=== PATIENT | female | born 1995 | race Caucasian/White ===

== ENCOUNTER 2024-05-01 12:38 | Outpatient (CLI) | payer BC, SELFPAY | END 2024-05-01 12:39 | disposition home or self-care (01) | PROVIDERS: Visit Provider Obstetrics & Gynecology | DX: O20.9 Hemorrhage in early pregnancy, unspecified (principal) | CPT/HCPCS: 84702; 86850; 86900; 86901 ==

== ENCOUNTER 2024-05-02 10:38 | Outpatient (CLI) | payer BC, SELFPAY | END 2024-05-02 10:39 | disposition home or self-care (01) | LOC: US 10:40 | PROVIDERS: Visit Provider Obstetrics & Gynecology | DX: O20.9 Hemorrhage in early pregnancy, unspecified (principal); Z3A.01 Less than 8 weeks gestation of pregnancy | CPT/HCPCS: 76817; 87491; 87591 ==

== ENCOUNTER 2024-05-07 13:31 | Outpatient (CLI) | payer BC, SELFPAY | END 2024-05-07 13:32 | disposition home or self-care (01) | LOC: US 13:32 | PROVIDERS: Visit Provider Registered Nurse | DX: Z34.91 Encounter for supervision of normal pregnancy, unspecified, first trimester (principal); Z3A.01 Less than 8 weeks gestation of pregnancy | CPT/HCPCS: 76817; 82565; 82570; 83021; 84156; 84443; 84450; 84460; 84520; 86592; 86703; 86704; 86706; 86762; 86787; 86803; 87086; 87340; 87624; 88142 ==

== ENCOUNTER 2024-05-16 13:43 | Outpatient (CLI) | payer BC, SELFPAY | END 2024-05-16 13:44 | disposition home or self-care (01) | LOC: US 13:43 | PROVIDERS: Visit Provider Registered Nurse | DX: E04.9 Nontoxic goiter, unspecified (principal) | CPT/HCPCS: 76536 ==

== ENCOUNTER 2024-05-19 11:23 | Outpatient (CLI) | payer BC, SELFPAY ==
--- NOTE | 2024-05-19 11:30 | CRLHL7_ITS ---
For Patients: As a result of the Century Cures Act, medical imaging exams and procedure reports are released immediately into your electronic medical record. You may view this report before your referring provider. If you have questions, please contact your health care provider. Indication: History of subchorionic hemorrhage Technique: Ultrasound Ob 1st trimester utilizing grayscale and color flow techniques Comparison: Ob ultrasound 131 25 and 05/07/2024 Findings: Single live intrauterine has a heart rate of 179 beats per minute and an average crown-rump length of 25 millimeters = average ultrasound age of 9 weeks 2 days with estimated date of delivery of July 06, 2024. Yolk sac measures 4 millimeters. Amniotic fluid is grossly unremarkable and limited by gestational age. Placenta was also not visualized secondary to gestational age. The cervix is long and closed. Uterus is grossly unremarkable. Right ovary measures 3.5 x 2.3 x 2.2 centimeters. Left ovary measures 2.8 x 1.6 x 1.4 centimeters. Minimally complex dominant left ovarian follicle is likely corpus luteal cyst and measures up to 2.3 centimeters. There is no free fluid. Impression: 1. No subchorionic hemorrhage. If there is continued concern, recommend Ob evaluation. 2. Single live intrauterine with average ultrasound age of 9 weeks 2 days. Dictated by Bert Ravi MD @ 05/19/2024 5:18:20 PM (Electronically Signed)
== END 2024-05-19 11:24 | disposition home or self-care (01) ==
PROVIDERS: Visit Provider Advanced Practice Midwife
DX: O20.9 Hemorrhage in early pregnancy, unspecified (principal); Z3A.09 9 weeks gestation of pregnancy
CPT/HCPCS: 76817; 82570; 84156

== ENCOUNTER 2024-06-27 05:56 | Day surgery (SDC) | payer BC, SELFPAY ==
[2024-06-27] VITALS (9 sets, daily range): BP systolic 117–136; BP diastolic 70–86; PULSE 83–113; RESP 14–18; TEMP 36.4–36.7; O2SAT 95–100; BMI 27.1; BMI 26.9
--- OUTSIDE RECORDS SUMMARY | 2024-06-27 05:57 | XMS_ITS | Clinical Summary ---
Author Organization [facility] Address [address] [place] [id number] Care Team Providers Care Online Tutor Name Role Phone Clinic, No Pcp Or Primary Care Provider Unavaila ble Allergies No known active allergies Medications No known medications Encounters Date Type Department Care Team Description 05/12/2024 1:56 PM AUTOMOTIVE PROFESSIONAL - 05/12/2024 3:53 PM AUTOMOTIVE PROFESSIONAL Emergency [facility] [address] [place] [address] Anne Marie Wen MD Threatened miscarriage (HC) (Primary Dx) Discharge Disposition: Home Self Care 05/12/2024 Travel from Last 3 Months Social History Tobacco Use Types Packs/Day Years Used Date Smoking Tobacco: Never Assessed Interpersonal Safety Answer Date Record ed Are you being hit, kicked, p ushed or yelled at (see row info)? No 05/12/2024 Interpersonal Safety Abuse 12 - 18 Not on file 05/12/2024 Interpersonal Safety Ambulatory Vulnerability No t on file 05/12/2024 Comments Yes Sex and Gender Information Value Date Recorded Sex Assigned at Not on file Legal Sex Female 1:17 PM AUTOMOTIVE PROFESSION[employer] Gender Identity Not on file Sexual Orientation Not on file Obstetrics History Para Term AB IAB SAB Ectopic Multiple Livin g Live Births 1 Date Outcome GA Total Labor Labor/2nd/3rd Weight Sex Type Anes PTL Humera A1 A5 Name Clin Current Last Filed Vital Signs Vital Sign Reading Time Taken Comments Blood Pressure 132/90 05/12/2024 1:27 PM AUTOMOTIVE PROFESSIONAL Pulse 109 05/12/2024 1:27 PM AUTOMOTIVE PROFESSIONAL Temperature 36.7 C (98.1 F) 05/12/2024 1:27 PM AUTOMOTIVE PROFESSIONAL Respiratory Rate 18 05/12/2024 1:27 PM AUTOMOTIVE PROFESSIONAL Oxygen Saturation 99% 05/12/2024 1:27 PM AUTOMOTIVE PROFESSIONAL Inhaled Oxygen Concentration - - Weight 70.5 kg (155 lb 6.4 oz) 05/12/2024 1:24 P M AUTOMOTIVE PROFESSIONAL Height 160 cm (5' 3) 05/12/2024 1:24 PM AUTOMOTIVE PROFESSIONAL Body Mass Index 27.53 05/12/2024 1:24 PM AUTOMOTIVE PROFESSIONAL Plan of Treatment Not on file Procedures Procedure Name Priority Date/Time Associated Diagnosis Comments RH(D) TYPE STAT 05/12/2024 3:00 PM AUTOMOTIVE PROFESSIONAL CBC WITH AUTO DIFFERENTIAL STAT 05/12/2024 3:00 PM AUTOMOTIVE PROFESSIONAL HCG BETA QUANT, STAT 05/12/2024 3:00 PM AUTOMOTIVE PROFESSIONAL CBC WITH AUTO DIFFERENTIAL STAT 05/12/2024 3:00 PM AUTOMOTIVE PROFESSIONAL URINALYSIS MICROSCOPIC STAT 05/12/2024 2:17 PM AUTOMOTIVE PROFESSIONAL UA W/ SEDIMENT EXAM REFLEXED PER CRITERIA STAT 05/12/2024 2:17 PM AUTOMOTIVE PROFESSIONAL from Last 3 Months Results * CBC WITH AUTO DIFFERENTIAL (05/12/2024 3:00 PM AUTOMOTIVE PROFESSIONAL) WHITE BLOOD COUNT 8.4 4.5 - 11.0 thou/cu mm 05/12/2024 3:10 PM [facility] RED BLOOD COUNT 4.42 4.00 - 5.20 mil/cu mm 05/12/2024 3:10 PM [facility] HEMOGLOBIN 13.1 12.0 - 16.0 g/dL 05/12/2024 3:10 PM [facility] HEMATOCRIT 38.9 33.0 - 51.0 % 05/12/2024 3:10 PM [facility] MCV 88 80 - 100 fL 05/12/2024 3:10 PM [facility] MCH 29.6 26.0 - 34.0 pg 05/12/2024 3:10 PM [facility] MCHC 33.7 32.0 - 36.0 g/dL 05/12/2024 3:10 PM [facility] RDW 12.4 11.5 - 15.5 % 05/12/2024 3:10 PM [facility] PLATELET COUNT 214 140 - 440 thou/cu mm 05/12/2024 3:10 PM [facility] MPV 9.8 6.5 - 11.0 fL 05/12/2024 3:10 PM [facility] % NEUT 76.1 % 05/12/2024 3:10 PM [facility] % LYMPH 16.9 % 05/12/2024 3:10 PM [facility] % MONO 5.8 % 05/12/2024 3:10 PM [facility] % EOS 1.0 % 05/12/2024 3:10 PM [facility] % BASO 0.2 % 05/12/2024 3:10 PM [facility] ABSOLUTE NEUTROPHILS 6.4 1.7 - 7.0 thou/cu mm 05/12/2024 3:10 PM [facility] ABSOLUTE LYMPHOCYTES 1.4 0.9 - 2.9 thou/cu mm 05/12/2024 3:10 PM [facility] ABSOLUTE MONOCYTES 0.5 <0.9 thou/cu mm 05/12/2024 3:10 PM [facility] ABSOLUTE EOSINOPHILS 0.1 <0.5 thou/cu mm 05/12/2024 3:10 PM [facility] ABSOLUTE BASOPHILS 0.0 <0.3 thou/cu mm 05/12/2024 3:10 PM [facility] Blood BLOOD SPECIMEN / Unknown Venipuncture / Unknown 05/12/2024 3:00 PM AUTOMOTIVE PROFESSIONAL 05/12/2024 3:05 PM [facility] us Anne Marie Wen MD HEMATOLOGY Final Result [facility] [address] [phone] * RH(D) TYPE (05/12/2024 3:00 PM AUTOMOTIVE PROFESSIONAL) RH(D) TYPE Positive 05/12/2024 3:41 PM AUTOMOTIVE PROFESSIONAL [facility] BLOOD BANK Blood BLOOD SPECIMEN / Unknown Venipuncture / Unknown 05/12/2024 3:00 PM AUTOMOTIVE PROFESSIONAL 05/12/2024 3:05 PM AUTOMOTIVE PROFESSIONAL us Anne Marie Wen MD BLOOD BANK Final Result [facility] [address] [phone] * HCG BETA QUANT, (05/12/2024 3:00 PM AUTOMOTIVE PROFESSIONAL) HCG BETA QUANT,PREGNANC Y 123,972 mIU/mL 05/12/2024 3:59 PM AUTOMOTIVE PROFESSIONAL [facility] Blood BLOOD SPECIMEN / Unknown Venipuncture / Unknown 05/12/2024 3:00 PM AUTOMOTIVE PROFESSIONAL 05/12/2024 3:05 PM AUTOMOTIVE PROFESSIONAL Narrative [facility] - 05/12/2024 3:59 PM AUTOMOTIVE PROFESSIONAL Expected Value for Healthy Non- premenopausal women <5.3mIU/mL FOR GESTATIONAL ASSESSMENT-See Range Table Below Weeks of gestation hCG mIU/mL 3 weeks gestation (5.8 - 71.2) 4 weeks gestation (9.5 - 750) 5 weeks gestation (217 - 7138) 6 weeks gestation (158 - 31,795) 7 weeks gestation (3,697 - 163,563) 8 weeks gestation (32,065 - 149,571) 9 weeks gestation (63,803 - 151,410) 10 weeks gestation (46,509 - 186,977) 12 weeks gestation (27,832 - 210,612) 14 weeks gestation (13,950 - 62,530) 15 weeks gestation (12,039 - 70,971) 16 weeks gestation (9,040 - 56,451) 17 weeks gestation (8,175 - 55,868) 18 weeks gestation (8,099 - 58,176) Biotin supplements may cause clinically significant interference for this test assay. If interference is suspected, it is strongly recommended that biotin is discontinued for at least one week prior to retesting. Anne Marie Wen MD CHEMISTRY Final Result Performing Organization Address [facility] Phone Number [address] [phone] * (ABNORMAL) URINALYSIS MICROSCOPIC (05/12/2024 2:17 PM AUTOMOTIVE PROFESSIONAL) RBC 3-5(A) 0-2, None Seen /HPF 05/12/2024 2:50 PM AUTOMOTIVE PROFESSIONAL [facility] WBC 0-2 0-2, 3-5, None Seen /HPF 05/12/2024 2:50 PM [facility] BACTERIA Rare None Seen, Rare, Few Bacteria/H PF 05/12/2024 2:50 PM [facility] EPITHELIAL CELLS Few None Seen, Few Epi/HPF 05/12/2024 2:50 PM [facility] Urine URINE SPECIMEN / Unknown Non-Blood / Unknown 05/12/2024 2:17 PM AUTOMOTIVE PROFESSIONAL 05/12/2024 2:45 PM AUTOMOTIVE PROFESSIONAL Anne Marie Wen MD URINE Final Result Performing Organization Address [facility] Phone Number [address] [phone] * (ABNORMAL) UA W/ SEDIMENT EXAM REFLEXED PER CRITERIA (05/12/2024 2:17 PM AUTOMOTIVE PROFESSIONAL) COLOR Yellow Yellow Color 05/12/2024 2:49 PM [facility] CLARITY Clear Clear Clarity 05/12/2024 2:49 PM [facility] SPECIFIC GRAVITY,URINE <=1.005(A) 1.010, 1.015, 1.020, 1.025 05/12/2024 2:49 PM [facility] PH,URINE 6.0 6.0, 7.0, 8.0, 5.5, 6.5, 7.5, 8.5 05/12/2024 2:49 PM [facility] UROBILINOGEN, QUALITATIVE Normal Normal EU/dl 05/12/2024 2:49 PM AUTOMOTIVE PROFESSIONAL [facility] PROTEIN, URINE Negative Negative mg/dL 05/12/2024 2:49 PM AUTOMOTIVE PROFESSIONAL [facility] GLUCOSE, URINE Negative Negative mg/dL 05/12/2024 2:49 PM AUTOMOTIVE PROFESSIONAL [facility] KETONES,URINE Negative Negative mg/dL 05/12/2024 2:49 PM AUTOMOTIVE PROFESSIONAL [facility] BILIRUBIN,URI NE Negative Negative 05/12/2024 2:49 PM AUTOMOTIVE PROFESSIONAL [facility] OCCULT BLOOD,URINE Large(A) Negative 05/12/2024 2:49 PM AUTOMOTIVE PROFESSIONAL [facility] NITRITE Negative Negative 05/12/2024 2:49 PM AUTOMOTIVE PROFESSIONAL [facility] LEUKOCYTE ESTERASE Negative Negative 05/12/2024 2:49 PM AUTOMOTIVE PROFESSIONAL [facility] Urine URINE SPECIMEN / Unknown Non-Blood / Unknown 05/12/2024 2:17 PM AUTOMOTIVE PROFESSIONAL 05/12/2024 2:45 PM AUTOMOTIVE PROFESSIONAL us Anne Marie Wen MD URINE Final Result [facility] [address] [place] [phone] from Last 3 Months Insurance [facility] Care Teams Online Tutor Relationship Specialty Start Date End Date Clinic, No Pcp Or . PCP - General 05/12/24
--- NOTE | 2024-06-27 06:05 | ED.PREGNANCY ---
HPI - General Time Seen by Provider: 06:05 Date Seen: 06/27/24 Chief complaint: Vaginal Bleeding Stated complaint: 15 weeks , bleeding Time Seen by Provider: 06/27/24 06:05 Source: patient, RN notes reviewed and old records reviewed Mode of arrival: ambulatory Limitations: no limitations History of Present Illness HPI Narrative: 29-year-old who presents today at 15+ 2 consistent with LMP and 1st term ultrasound, known intrauterine . Patient has had some intermittent bleeding including subchorionic hemorrhage on initial ultrasound that resolved. Has noticed some increased bleeding last couple of days especially this morning. Also some lower abdominal cramping. No chest pain or shortness of breath. Related Data Home Medications ?Medication ?Instructions ?Recorded ?Confirmed clobetasol 0.05 % scalp solution topical BID 05/02/24 06/24/24 docosahexaenoic acid 200 mg mg PO 05/02/24 06/24/24 capsule ( DHA) aspirin 81 mg chewable tablet 81 mg PO QDAY 06/24/24 06/24/24 Allergies Allergy/AdvReac Type Severity Reaction Status Date / Time No Known Drug Allergies Allergy Verified 06/24/24 14:31 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 What is your current living situation?: I presently have a place to live Problems where you live: no known problems In the past 12 months, utilities in danger of being shut off: no In past 12 months, lack of transportation kept you from medical appts, meetings, work, or getting things needed for daily living: no In the past 12 mos, have been you worried that your food would run out before you had money to buy more?: never true In the past 12 mos, the food you bought just didn't last and you didn't have money to buy more?: never true Smoking Status: Never smoker Do you use any of these nicotine containing products: None How often do you have a drink containing alcohol: never AUDIT-C Alcohol total score: 0 Non-prescribed substance use: denies use How often does anyone, including family, friends and others, physically hurt you: never How often does anyone, including family, friends and others, insult or talk down to you: never How often does anyone, including family, friends and others, threaten you with harm: never How often does anyone, including family, friends and others, scream or curse at you: never Exam Narrative: Exam Narrative: General: well nourished , NAD Head: Atraumatic and normocephalic ENT: External ears and external nose are normal Eyes: Conjunctiva clear, pupils are equal reactive, external ocular motions are intact Neck: Full spontaneous range of motion of the neck Lungs: No respiratory distress Abdomen: no focal tenderness Musculoskeletal: No tenderness or deformity Neurologic: No gross focal neurologic deficits Skin: No rashes Psych: Mood and affect are appropriate Const: Vital Signs, click to edit/add: Vital Signs - 24 hr 06/27/24 05:59 Temperature 97.7 F Pulse Rate [Pulse Oximeter] 92 Respiratory Rate 16 Blood Pressure [Ri ght Upper Arm] 134/81 Pulse Oximetry 97 Oxygen Delivery Me thod Room Air Course Course ED Course: patient seen examined, reviewed most recent OB visit from June 24 when patient was seen for routine check and at that time did note some spotting, felt at that time the bleeding might be related to friable cervix. presents today with again some bleeding and some low abdominal cramping. On exam here patient's vital is stable, appears little bit pale. No abdominal tenderness on exam. Bedside ultrasound with intrauterine , however no movement or cardiac activity noted. Formal ultrasound ordered for further evaluation. Reevaluation(s) Time of Reevaluation #1: 07:08 Reevaluation #1: Uultrasound reviewed, no cardiac activity, no movement, in have when interval growth from prior exam representing demise.Care discussed with oil burner journeyman who will come see the patient. I did review prior chart, blood type A positive. Time of Reevaluation #2: 07:45 Reevaluation #2: Reviewed radiology interpretation of ultrasound which agrees with my initial interpretation. Plan to signout to oncoming provider with likely disposition to OR for D and C. Vital Signs Vital signs: Initial Vital Signs Temperature 97.7 F 06/27/24 05:59 Temperature Source Temporal Artery Scan 06/27/24 05:59 Pulse Rate 92 06/27/24 05:59 Respiratory Rate 16 06/27/24 05:59 Blood Pressure 134/81 06/27/24 05:59 Blood Pressure Mean 98 06/27/24 05:59 Blood Pressure Position Supine 06/27/24 05:59 Pulse Oximetry 97 06/27/24 05:59 Oxygen Delivery Method Room Air 06/27/24 05:59 Vital Signs Temperature 97.7 F 06/27/24 05:59 Pulse Rate 92 06/27/24 05:59 Respiratory Rate 16 06/27/24 05:59 Blood Pressure 134/81 06/27/24 05:59 Pulse Oximetry 97 06/27/24 05:59 Oxygen Delivery Method Room Air 06/27/24 05:59 Temperature 97.7 F 06/27/24 05:59 Pulse Rate 92 06/27/24 05:59 Respiratory Rate 16 06/27/24 05:59 Blood Pressure 134/81 06/27/24 05:59 Pulse Oximetry 97 06/27/24 05:59 Oxygen Delivery Method Room Air 06/27/24 05:59 MDM - OB/Uterine Contractions Lab Data Labs: Lab Results 06/27/24 Range/Units 06:27 WBC 6.81 (4.50-11.00) K/uL RBC 4.21 (4.00-5.20) m/uL Hgb 12.5 (12.0-16.0) gm/dL Hct 38.2 (33.0-51.0) % MCV 91 (80-100) fL MCH 30 (26-34) pg MCHC 33 (32-36) gm/dL RDW Coeff of Rowan 12.6 (11.5-15.5) % Plt Count 191 (140-440) K/uL Neut % (Auto) 72.4 H (42.0-72.0) % Lymph % (Auto) 19.7 L (20-44) % [place] % (Auto) 5.7 (0.0-11.0) % Eos % (Auto) 1.0 (0.0-7.0) % Baso % (Auto) 0.3 (0.0-3.0) % Neut # (Auto) 4.90 (1.7-7.0) K/uL Lymph # (Auto) 1.30 (0.90-2.90) K/uL [place] # (Auto) 0.40 (0.00-0.90) K/UL Eos # (Auto) 0.07 (0.00-0.50) K/uL Baso # (Auto) 0.02 (0.00-0.30) K/uL Abs Immat Gran (auto) 0.06 (0.00-0.30) K/uL Imm/Tot Granulo (auto) 0.9 % Discharge Plan Discharge Clinical Impression: Second trimester , IUFD at less than 20 weeks of gestation Prescriptions: No Action aspirin 81 mg tablet,chewable 81 mg PO QDAY DHA 200 mg capsule PO clobetasol 0.05 % solution topical BID Follow Up/Referrals: Provider,Not a Local [Primary Care Provider] -
--- NOTE | 2024-06-27 06:16 | CRLHL7_ITS ---
For Patients: As a result of the Century Cures Act, medical imaging exams and procedure reports are released immediately into your electronic medical record. You may view this report before your referring provider. If you have questions, please contact your health care provider. INDICATION: Bleeding, no heart rate on bedside ultrasound. TECHNIQUE: Ultrasound OB pelvis transabdominal. Real-time mayo-scale imaging of the pelvis was performed. COMPARISON: 05/19/2024 FINDINGS: Clinical Age: 15 weeks 2 days (AMBER 12/17/2024) Uterus is anteverted with placental formation anteriorly. There is an intrauterine gestation without cardiac activity on cine, M-mode or color Doppler imaging. age based on biometry is 12 weeks 5 days (60 gm) which shows inadequate interval growth compared to the prior exam. IMPRESSION: Single intrauterine gestation without cardiac activity consistent with demise. Dictated by Hilario Stiles MD @ 06/27/2024 7:22:32 AM (Electronically Signed)
--- OUTSIDE RECORDS SUMMARY | 2024-06-27 06:32 | XMS_ITS | Clinical Summary ---
Author Organization [facility] Address [address] [place] [id number] Care Team Providers Care Mop Man Name Role Phone Clinic, No Pcp Or Primary Care Provider Unavaila ble Allergies No known active allergies Medications No known medications Encounters Date Type Department Care Team Description 05/12/2024 1:56 PM SMOKE AND FLAME SPECIALIST - 05/12/2024 3:53 PM SMOKE AND FLAME SPECIALIST Emergency [facility] [address] [place] [address] Anne Marie Wen MD Threatened miscarriage (HC) [...] on file Legal Sex Female 1:17 PM SMOKE AND FLAME SPECIALIST Gender Identity Not on file Sexual Orientation Not on file Obstetrics History Para Term AB IAB SAB Ectopic Multiple Livin g Live Births 1 Date Outcome GA Total Labor Labor/2nd/3rd Weight Sex Type Anes PTL Humera A1 A5 Name Clin Current Last Filed Vital Signs Vital Sign Reading Time Taken Comments Blood Pressure 132/90 05/12/2024 1:27 PM SMOKE AND FLAME SPECIALIST Pulse 109 05/12/2024 1:27 PM SMOKE AND FLAME SPECIALIST Temperature 36.7 C (98.1 F) 05/12/2024 1:27 PM SMOKE AND FLAME SPECIALIST Respiratory Rate 18 05/12/2024 1:27 PM SMOKE AND FLAME SPECIALIST Oxygen Saturation 99% 05/12/2024 1:27 PM SMOKE AND FLAME SPECIALIST Inhaled Oxygen Concentration - - Weight 70.5 kg (155 lb 6.4 oz) 05/12/2024 1:24 P M SMOKE AND FLAME SPECIALIST Height 160 cm (5' 3) 05/12/2024 1:24 PM SMOKE AND FLAME SPECIALIST Body Mass Index 27.53 05/12/2024 1:24 PM SMOKE AND FLAME SPECIALIST Plan of Treatment Not on file Procedures Procedure Name Priority Date/Time Associated Diagnosis Comments RH(D) TYPE STAT 05/12/2024 3:00 PM SMOKE AND FLAME SPECIALIST CBC WITH AUTO DIFFERENTIAL STAT 05/12/2024 3:00 PM SMOKE AND FLAME SPECIALIST HCG BETA QUANT, STAT 05/12/2024 3:00 PM SMOKE AND FLAME SPECIALIST CBC WITH AUTO DIFFERENTIAL STAT 05/12/2024 3:00 PM SMOKE AND FLAME SPECIALIST URINALYSIS MICROSCOPIC STAT 05/12/2024 2:17 PM SMOKE AND FLAME SPECIALIST UA W/ SEDIMENT EXAM REFLEXED PER CRITERIA STAT 05/12/2024 2:17 PM SMOKE AND FLAME SPECIALIST from Last 3 Months Results * CBC WITH AUTO DIFFERENTIAL (05/12/2024 3:00 PM SMOKE AND FLAME SPECIALIST) WHITE BLOOD COUNT 8.4 4.5 - 11.0 thou/cu mm 05/12/2024 3:10 PM [facility] RED BLOOD COUNT 4.42 4.00 - 5.20 mil/cu mm 05/12/2024 3:10 PM [facility] HEMOGLOBIN 13.1 12.0 - 16.0 g/dL 05/12/2024 3:10 PM [facility] HEMATOCRIT 38.9 33.0 - 51.0 % 05/12/2024 3:10 PM [facility] MCV 88 80 - 100 fL 05/12/2024 3:10 PM [facility] MCH 29.6 26.0 - 34.0 pg 05/12/2024 3:10 PM [facility] MCHC 33.7 32.0 - 36.0 g/dL 05/12/2024 3:10 PM [facility] RDW 12.4 11.5 - 15.5 % 05/12/2024 3:10 PM [facility] PLATELET COUNT 214 140 - 440 thou/cu mm 05/12/2024 3:10 PM [facility] MPV 9.8 6.5 - 11.0 fL 05/12/2024 3:10 PM [facility] % NEUT 76.1 % 05/12/2024 3:10 PM [facility] % LYMPH 16.9 % 05/12/2024 3:10 PM [facility] % MONO 5.8 % 05/12/2024 3:10 PM [facility] % EOS 1.0 % 05/12/2024 3:10 PM [facility] % BASO 0.2 % 05/12/2024 3:10 PM [facility] ABSOLUTE NEUTROPHILS 6.4 1.7 - 7.0 thou/cu mm 05/12/2024 3:10 PM [facility] ABSOLUTE LYMPHOCYTES 1.4 0.9 - 2.9 thou/cu mm 05/12/2024 3:10 PM [facility] ABSOLUTE MONOCYTES 0.5 <0.9 thou/cu mm 05/12/2024 3:10 PM [facility] ABSOLUTE EOSINOPHILS 0.1 <0.5 thou/cu mm 05/12/2024 3:10 PM [facility] ABSOLUTE BASOPHILS 0.0 <0.3 thou/cu mm 05/12/2024 3:10 PM [facility] Blood BLOOD SPECIMEN / Unknown Venipuncture / Unknown 05/12/2024 3:00 PM SMOKE AND FLAME SPECIALIST 05/12/2024 3:05 PM [facility] us Anne Marie Wen MD HEMATOLOGY Final Result [facility] [address] [id number] * RH(D) TYPE (05/12/2024 3:00 PM SMOKE AND FLAME SPECIALIST) RH(D) TYPE Positive 05/12/2024 3:41 PM SMOKE AND FLAME SPECIALIST [facility] BLOOD BANK Blood BLOOD SPECIMEN / Unknown Venipuncture / Unknown 05/12/2024 3:00 PM SMOKE AND FLAME SPECIALIST 05/12/2024 3:05 PM SMOKE AND FLAME SPECIALIST us Anne Marie Wen MD BLOOD BANK Final Result [facility] BLOOD BANK [address] [address] * HCG BETA QUANT, (05/12/2024 3:00 PM SMOKE AND FLAME SPECIALIST) HCG BETA QUANT,PREGNANC Y 123,972 mIU/mL 05/12/2024 3:59 PM SMOKE AND FLAME SPECIALIST [facility] Blood BLOOD SPECIMEN / Unknown Venipuncture / Unknown 05/12/2024 3:00 PM SMOKE AND FLAME SPECIALIST 05/12/2024 3:05 PM SMOKE AND FLAME SPECIALIST Narrative [facility] - 05/12/2024 3:59 PM SMOKE AND FLAME SPECIALIST Expected Value for Healthy Non- premenopausal women [...] MD CHEMISTRY Final Result Performing Organization Address [facility] Phone Number [address] [phone] * (ABNORMAL) URINALYSIS MICROSCOPIC (05/12/2024 2:17 PM SMOKE AND FLAME SPECIALIST) RBC 3-5(A) 0-2, None Seen /HPF 05/12/2024 2:50 PM SMOKE AND FLAME SPECIALIST [facility] WBC 0-2 0-2, 3-5, None Seen /HPF 05/12/2024 2:50 PM [facility] BACTERIA Rare None Seen, Rare, Few Bacteria/H PF 05/12/2024 2:50 PM [facility] EPITHELIAL CELLS Few None Seen, Few Epi/HPF 05/12/2024 2:50 PM [facility] Urine URINE SPECIMEN / Unknown Non-Blood / Unknown 05/12/2024 2:17 PM SMOKE AND FLAME SPECIALIST 05/12/2024 2:45 PM SMOKE AND FLAME SPECIALIST Anne Marie Wen MD URINE Final Result Performing Organization Address [facility] Phone Number [address] [phone] * (ABNORMAL) UA W/ SEDIMENT EXAM REFLEXED PER CRITERIA (05/12/2024 2:17 PM SMOKE AND FLAME SPECIALIST) COLOR Yellow Yellow Color 05/12/2024 2:49 PM [facility] CLARITY Clear Clear Clarity 05/12/2024 2:49 PM [facility] SPECIFIC GRAVITY,URINE <=1.005(A) 1.010, 1.015, 1.020, 1.025 05/12/2024 2:49 PM [facility] PH,URINE 6.0 6.0, 7.0, 8.0, 5.5, 6.5, 7.5, 8.5 05/12/2024 2:49 PM [facility] UROBILINOGEN, QUALITATIVE Normal Normal EU/dl 05/12/2024 2:49 PM SMOKE AND FLAME SPECIALIST [facility] PROTEIN, URINE Negative Negative mg/dL 05/12/2024 2:49 PM SMOKE AND FLAME SPECIALIST [facility] GLUCOSE, URINE Negative Negative mg/dL 05/12/2024 2:49 PM SMOKE AND FLAME SPECIALIST [facility] KETONES,URINE Negative Negative mg/dL 05/12/2024 2:49 PM SMOKE AND FLAME SPECIALIST [facility] BILIRUBIN,URI NE Negative Negative 05/12/2024 2:49 PM SMOKE AND FLAME SPECIALIST [facility] OCCULT BLOOD,URINE Large(A) Negative 05/12/2024 2:49 PM SMOKE AND FLAME SPECIALIST [facility] NITRITE Negative Negative 05/12/2024 2:49 PM SMOKE AND FLAME SPECIALIST [facility] LEUKOCYTE ESTERASE Negative Negative 05/12/2024 2:49 PM SMOKE AND FLAME SPECIALIST [facility] Urine URINE SPECIMEN / Unknown Non-Blood / Unknown 05/12/2024 2:17 PM SMOKE AND FLAME SPECIALIST 05/12/2024 2:45 PM SMOKE AND FLAME SPECIALIST us Anne Marie Wen MD URINE Final Result [facility] [address] [place] [phone] from Last [address] [facility] Care Teams Mop Man Relationship Specialty Start Date End Date Clinic, No Pcp Or . PCP - General 05/12/24
[2024-06-27 06:34] LABS: Basophils Percent Auto 0.3 % (0.0-3.0); Hematocrit 38.2 % (33.0-51.0); Hemoglobin* 12.5 gm/dL (12.0-16.0); Immature Granulocytes Pct Auto 0.9 %; Lymphocytes Percent Auto 19.7 % (20-44); Mean Corpuscular HGB Conc 33 gm/dL (32-36); Mean Corpuscular Hemoglobin 30 pg (26-34); Mean Corpuscular Volume 91 fL (80-100); Monocytes Percent Auto 5.7 % (0.0-11.0); Neutrophils Percent Auto 72.4 % (42.0-72.0); Platelet Count* 191 K/uL (140-440); RDW Coefficient of Variation % 12.6 % (11.5-15.5); Red Blood Count 4.21 m/uL (4.00-5.20); White Blood Count* 6.81 K/uL (4.50-11.00)
[2024-06-27 06:35] LABS: Basophils Absolute Auto 0.02 K/uL (0.00-0.30); Eosinophils Absolute Auto 0.07 K/uL (0.00-0.50); Immature Granulocytes Abs Auto 0.06 K/uL (0.00-0.30)
[2024-06-27 06:53] LABS: Slide Review Reflex No
[2024-06-27] MEDS: DOXYCYCLINE HYCLATE 200 MG in 0.9 % SODIUM CHLORIDE 250 ml 250 ML 250 MG IVPB (08:21)
--- NOTE | 2024-06-27 08:22 | P.GYNCN_ITS ---
MEMBERSHIP COUNSELOR - CN: HPI Data of Consult Time Seen by Provider: 08:00 Date Seen: 06/27/24 Patient: [facility] Patient Consult date: 06/27/24 Requesting Physician: Macho Rodriguez MD Primary Care Provider: Not a Local Provider Consult Narrative Reason for consult: vaginal bleeding and other (missed ab) Narrative: Amanda Ortega is a 29 year old female 1 para 0 at 14 weeks 6 days gestation by last menstrual period who presented to the emergency room this morning with red vaginal bleeding and passing very small clots in the toilet. She states that most of her bleeding has been just with wiping. She put a pad on this morning and has had a few drops of blood on the pad. Also had some light cramping. She had bleeding off and on in the 1st trimester and was diagnosed with a subchorionic hemorrhage. She then had no bleeding for approximately 1 month and then started bleeding again in the past week. The bleeding was pink tinged toilet tissue with wiping and then became red about 2-3 days ago. This morning the bleeding has become slightly heavier. Her blood type is A positive. She had an ultrasound today which showed: Which showed an intrauterine measuring 12 weeks 5 days gestation with no cardiac activity. This is consistent with an intrauterine demise. The patient is aware of these results and she and her spouse Kash are interested in surgical treatment. I had a detailed discussion with the patient regarding causes of miscarriage. The most common cause of miscarriage is aneuploidy resulting from non- dysjunction at the time of ova fertilization: 70%. This is caused by abnormal division of the mother's chromosomes when the eggs fertilized resulting in either too many or 2 few chromosomes in the . Other causes of miscarriage are assumed to be due to implantation abnormalities or other genetic problems that occur during division of the ova. None of these causes are in the control of the patient or her partner. There is nothing that she did or did not do to cause the miscarriage. Miscarriages are unfortunately common: 15-25% of women who presents to the clinic with a positive home test will have a that results in miscarriage. Recurrent miscarriage is uncommon and I would offer testing for recurrent loss if she were to have a 2nd miscarriage. I reviewed options for treatment of missed primarily discussed Suction curettage as the patient and her spouse expressed interest in surgical intervention. I reviewed how this procedure is performed. This is done in the operating room with conscious sedation and paracervical block. The cervix is dilated open, a plastic curette is advanced into the uterus and connected to a vacuum. The vacuum then pulls the out of the uterus. All tissue removed from the uterus is sent to the lab for testing to verify that tissue was obtained. I do not recommend cytogenetic testing unless the patient has had more than 1 miscarriage. Ultrasound guidance is not required. Risks with a suction curettage include injury to cervix or uterus -. Infection in the uterus resulting in endometritis -. She will receive antibiotics in the IV in the operating room prior to the procedure to prevent infection. Chance of Asherman syndrome resulting in inability to conceive a in the future: 04/2499. Chance of anesthesia complications are extremely rare: Less than 1/100,000 especially with her negative family history of anesthesia issues. Expected recovery: Mild cramping after miscarriage/surgery usually controlled with [id number] extra- strength Tylenol and ibuprofen. Only restriction for activity postoperatively/after a miscarriage is nothing vaginally for 2 weeks. She should expect to have some bleeding for 2-4 weeks after surgery or spontaneous miscarriage. If she continues to have bleeding past 4 weeks I would recommend a follow-up ultrasound to assess for retained products of conception. All of her questions were answered. The patient's past medical, surgical, social and family histories were reviewed in her electronic medical record. cc:: CC: 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 What is your current living situation?: I presently have a place to live Problems where you live: no known problems In the past 12 months, utilities in danger of being shut off: no In past 12 months, lack of transportation kept you from medical appts, meetings, work, or getting things needed for daily living: no In the past 12 mos, have been you worried that your food would run out before you had money to buy more?: never true In the past 12 mos, the food you bought just didn't last and you didn't have money to buy more?: never true Smoking Status: Never smoker Do you use any of these nicotine containing products: None How often do you have a drink containing alcohol: never AUDIT-C Alcohol total score: 0 Non-prescribed substance use: denies use How often does anyone, including family, friends and others, physically hurt you : never How often does anyone, including family, friends and others, insult or talk down to you: never How often does anyone, including family, friends and others, threaten you with harm: never How often does anyone, including family, friends and others, scream or curse at you: never Meds Home Medications and Allergies Home Medications ?Medication ?Instructions ?Recorded ?Confirmed ?Type clobetasol 0.05 % scalp solution topical BID 05/02/24 06/24/24 History docosahexaenoic acid 200 mg mg PO 05/02/24 06/24/24 History capsule ( DHA) aspirin 81 mg chewable tablet 81 mg PO QDAY 06/24/24 06/24/24 History Allergies Allergy/AdvReac Type Severity Reaction Status Date / Time No Known Drug Allergies Allergy Verified 06/24/24 14:31 MEMBERSHIP COUNSELOR - Exam Physical Exam: Vital signs: Temp Pulse Resp BP Pulse Ox O2 Del Method 97.7 F 92 16 134/81 97 Room Air 06/27/24 05:59 06/27/24 05:59 06/27/24 05:59 06/27/24 05:59 06/27/24 05:59 06/27/24 05:59 Narrative: General: Pleasant, , well groomed woman who is appropriately tearful. Vital signs: Included in her electronic medical record. Abdomen: Soft, nontender, nondistended with normal bowel sounds. Chest: Clear to auscultation bilaterally. Heart: Regular rate and rhythm without gallop, rub or murmur. Genitourinary: Deferred to the OR. Extremities: No pain or edema. MEMBERSHIP COUNSELOR - Results Labs Labs: Short CBC 06/27/24 Range/Units 06:27 WBC 6.81 (4.50-11.00) K/uL Hgb 12.5 (12.0-16.0) gm/dL Hct 38.2 (33.0-51.0) % Plt Count 191 (140-440) K/uL Assessment and Plan Assessment and plan (1) IUFD at less than 20 weeks of gestation: Status: Acute Plan 1. Consent form reviewed and signed for suction dilation and curettage. 2. I will have her return to the office for a postop visit in 2 weeks. 3. Restrictions: Nothing vaginally for 2 weeks. 4. Questions answered regarding miscarriage and surgical procedure.
[2024-06-27] MEDS: 0.9 % SODIUM CHLORIDE 500 ML 500 ML 100 ML IV (08:30)
--- NOTE | 2024-06-27 09:13 | P.PCN_ITS ---
Procedure Note Time Seen by Provider: : Date Seen: 06/27/24 Date of procedure: 06/27/24 Will [facility] bill your pro fee for this procedure?: Yes Procedure: Preoperative diagnosis: Amanda is a 29-year-old 1 para 1 with a missed at 12 and 2/7 weeks gestation by ultrasound. She is 14 weeks 6 days by dates. Postoperative diagnosis: Same Procedure: Suction curettage Anesthesia: Conscious sedation, paracervical block Surgeon: Anne Marie Mckenna MD Rotary Shear Operator: Not applicable IV fluid: 500 mL Estimated blood loss: 100 mL Specimen: Products of conception to pathology Findings: On exam under anesthesia: the uterus was approximately 12-14 weeks size, anteverted position. Cervical os was slightly dilated without active bleeding. The cervical ectropion was extremely friable and bleeding otherwise the cervix appeared normal and dilated to approximately 0.5 cm. Adnexa were without mass or fullness palpable. The uterus sounded to 14 cm. On suction curettage there was a large amount of products of conception. Procedure: Amanda was taken to the operating room where conscious sedation was found to be adequate. She was placed in the dorsal lithotomy position and an exam under anesthesia was performed with with findings stated above. She was then prepped and draped in normal sterile manner. A bivalve speculum was placed in the vagina to visualize the cervix. A paracervical block was placed using 0.5% Marcaine: 5 mL injected at the 4 and 8 o'clock positions on the cervix. The anterior lip of the cervix was grasped with a long Allis clamp. The cervix was dilated to Hegar # 10. A # 10 curved curette was then advanced into the uterus without difficulty. A suction curettage was then performed using 40-50 mmHg pressure. Five passes with the curette were performed to remove all visualized tissue. Placental tissue in the gestational sac were noted to be protruding through the external cervical os after the 3rd pass. This tissue was grasped with a ring forceps and removed and sent with the tissue obtained from the suction curettage. The curette was removed and mild, sharp curettage was performed to verify that all of the products of conception had been removed. One last pass with the curved curette was then made to verify that all of the tissue had been removed. A bedside ultrasound was performed which showed that the endometrium was thin no evidence of retained products of conception at the end of the procedure. The Allis clamp was removed from the anterior lip of the cervix. Monsel's solution was applied to the ectropion to obtain hemostasis. Excellent hemostasis was noted. The speculum was then removed from the vagina. The patient tolerated this procedure well. Sponge, lap and instrument counts were correct x2 the end of the procedure. The patient was awakened from sedation and taken to the recovery area in stable condition. The patient received 200 mg IV doxycycline prior to the procedure.
[2024-06-27] MEDS: BUPIVACAINE 0.5% 30 ML 5 ML INJECTION (09:48)
[2024-06-27] MEDS: LIDOCAINE 1%-EPI 1:100,000 5 ML INFILTRATI (09:57)
--- NOTE | 2024-07-08 14:28 | P.ANES_ITS ---
Anesthesia Charges Start Date/Time Anesthesia Start Date: 06/27/24 Anesthesia Start Time: 09:12 Stop Date/Time Anesthesia Stop Date: 06/27/24 Anesthesia Stop Time: 10:00 Summary Emergency: ISOTOPE TECHNOLOGIST Coding CPT Codes CPT Codes: ANESTH VAGINAL PROCEDURES - 98826 ([id number]) P2 - PATIENT W/MILD SYST DISEASE, QZ - ISOTOPE TECHNOLOGIST SVC W/O CAREER DEVELOPMENT MANAGER BY Additional Codes: Summary - Emergency: ISOTOPE TECHNOLOGIST ([id number])
--- NOTE | 2024-07-08 14:28 | W.ANESCHARGE ---
Anesthesia Charges Start Date/Time Anesthesia Start Date: 06/27/24 Anesthesia Start Time: 09:12 Stop Date/Time Anesthesia Stop Date: 06/27/24 Anesthesia Stop Time: 10:00 Summary Emergency: SILK FOLDER Coding CPT Codes CPT Codes: ANESTH VAGINAL PROCEDURES - 37207 ([id number]) P2 - PATIENT W/MILD SYST DISEASE, QZ - SILK FOLDER SVC W/O MARRIAGE THERAPIST BY Additional Codes: Summary - Emergency: SILK FOLDER ([id number])
== END 2024-06-27 11:05 | disposition home or self-care (01) ==
LOC: ED 08:31 → OR 08:31
PROVIDERS: Emergency Provider Family Medicine; Visit Provider Obstetrics & Gynecology
PROC: (CPT 59821; principal; 2024-06-27 08:45)
DX: O02.1 Missed abortion (principal); O08.1 Delayed or excessive hemorrhage following ectopic and molar pregnancy; Z3A.14 14 weeks gestation of pregnancy
CPT/HCPCS: 59821; 00940; 36415; 76815; 85025; 88271; 88305; 99140; 99285; J0665; J1100; J1885; J2250; J2405; J2704; J3010; J3490; J7030; J7050

== ENCOUNTER 2024-07-23 15:33 | Outpatient (CLI) | payer BC, SELFPAY | END 2024-07-23 15:34 | disposition home or self-care (01) | LOC: NFLDREF 07-29 21:42 | PROVIDERS: Visit Provider Obstetrics & Gynecology | DX: O02.1 Missed abortion (principal) | CPT/HCPCS: 84144 ==

== ENCOUNTER 2024-07-29 09:31 | Outpatient (CLI) | payer BC, SELFPAY | END 2024-07-29 09:32 | disposition home or self-care (01) | LOC: NFLDREF 09:31 | PROVIDERS: Visit Provider Obstetrics & Gynecology | DX: N97.8 Female infertility of other origin (principal) | CPT/HCPCS: 84702 ==

== ENCOUNTER 2024-08-13 15:33 | Outpatient (CLI) | payer BC, SELFPAY | END 2024-08-13 15:34 | disposition home or self-care (01) | LOC: NFLDREF 08-20 03:13 | PROVIDERS: Visit Provider Obstetrics & Gynecology | DX: E03.8 Other specified hypothyroidism (principal) | CPT/HCPCS: 84443 ==

== ENCOUNTER 2024-09-15 10:04 | Outpatient (CLI) | payer BC, SELFPAY | END 2024-09-15 10:05 | disposition home or self-care (01) | LOC: NFLDREF 09-19 08:45 | PROVIDERS: Visit Provider Obstetrics & Gynecology | DX: N97.8 Female infertility of other origin (principal); E03.8 Other specified hypothyroidism | CPT/HCPCS: 84144; 84443 ==

== ENCOUNTER 2024-09-24 13:03 | Outpatient (CLI) | payer BC, SELFPAY | END 2024-09-24 13:04 | disposition home or self-care (01) | LOC: NFLDREF 13:05 | PROVIDERS: Visit Provider Obstetrics & Gynecology | DX: N97.8 Female infertility of other origin (principal) | CPT/HCPCS: 84702 ==

== ENCOUNTER 2024-09-26 10:08 | Outpatient (CLI) | payer BC, SELFPAY | END 2024-09-26 10:09 | disposition home or self-care (01) | LOC: NFLDREF 09-30 11:02 | PROVIDERS: Visit Provider Obstetrics & Gynecology | DX: O20.9 Hemorrhage in early pregnancy, unspecified (principal) | CPT/HCPCS: 84702 ==

== ENCOUNTER 2024-10-02 09:13 | Outpatient (CLI) | payer BC, SELFPAY | END 2024-10-02 09:14 | disposition home or self-care (01) | LOC: NFLDREF 10-07 03:51 | PROVIDERS: Visit Provider Obstetrics & Gynecology | DX: O20.9 Hemorrhage in early pregnancy, unspecified (principal) | CPT/HCPCS: 84702 ==

== ENCOUNTER 2024-10-04 13:23 | Emergency (ER) | payer BC, SELFPAY ==
--- OUTSIDE RECORDS SUMMARY | 2024-10-04 13:24 | XMS_ITS | Clinical Summary ---
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 Gender Identity Not on file Sexual Orientation Not on file Obstetrics History Para Term AB IAB SAB Ectopic Multiple Livin g Live Births 1 Date Outcome GA Total Labor Labor/2nd/3rd Weight Sex Type Anes PTL Humera A1 A5 Name Clin Current Last Filed Vital Signs Vital Sign Reading Time Taken Comments Blood Pressure 132/90 05/12/2024 1:27 PM MINERAL ORE PROCESSING LABOURER Pulse 109 05/12/2024 1:27 PM MINERAL ORE PROCESSING LABOURER Temperature 36.7 C (98.1 F) 05/12/2024 1:27 PM MINERAL ORE PROCESSING LABOURER Respiratory Rate 18 05/12/2024 1:27 PM MINERAL ORE PROCESSING LABOURER Oxygen Saturation 99% 05/12/2024 1:27 PM MINERAL ORE PROCESSING LABOURER Inhaled Oxygen Concentration - - Weight 70.5 kg (155 lb 6.4 oz) 05/12/2024 1:24 P M MINERAL ORE PROCESSING LABOURER Height 160 cm (5' 3) 05/12/2024 1:24 PM MINERAL ORE PROCESSING LABOURER Body Mass Index 27.53 05/12/2024 1:24 PM MINERAL ORE PROCESSING LABOURER Plan of Treatment Not on file Insurance [facility] Care Teams Director Targeted Marketing Relationship Specialty Start Date End Date Clinic, No Pcp Or . PCP - General 05/12/24
[2024-10-04 13:30] VITALS: BP 143/82; PULSE 94; RESP 16; TEMP 36.7; O2SAT 100; BMI 25.9
--- NOTE | 2024-10-04 13:41 | CRLHL7_ITS ---
For Patients: As a result of the Century Cures Act, medical imaging exams and procedure reports are released immediately into your electronic medical record. You may view this report before your referring provider. If you have questions, please contact your health care provider. INDICATION: Abdominal pain. Vaginal bleeding. . FINDINGS: An endovaginal pelvic ultrasound shows a 1.0 cm probable fibroid in the left side of the body of the uterus. The uterus is otherwise unremarkable. Heterogeneity of the endometrial stripe measuring 1.0 cm. No rounded fluid collections in the endometrial stripe. 1.4 cm cyst in the right ovary. The right ovary is otherwise unremarkable and measures 2.9 x 2.4 x 1.4 cm. 1.7 x 1.6 x 1.2 cm solid appearing lesion located medial to the right ovary shows only minimal adjacent blood flow. 2.2 x 1.7 x 1.0 cm probable corpus luteum cyst in the left ovary. The left ovary measures 3.3 x 3.1 x 1.6 cm. No free fluid in the pelvis. Impression : 1. No intrauterine identified. 2. 1.7 cm solid-appearing lesion located medial to the right ovary shows minimal adjacent blood flow. This is a nonspecific finding but can not exclude an ectopic . Recommend media production support manager consultation. Note: Findings discussed with and acknowledged by Dr. Macias on 04 October 2024 at 1543 hours. Dictated by Kg Cohn MD @ 10/04/2024 3:43:41 PM Dictated by: Kg Cohn MD @ 10/04/2024 15:43:57 (Electronically Signed)
[2024-10-04 14:12] LABS: Hematocrit 45.3 % (33.0-51.0); Hemoglobin* 14.7 gm/dL (12.0-16.0); Immature Granulocytes Abs Auto 0.00 K/uL (0.00-0.30); Immature Granulocytes Pct Auto 0.0 %; Lymphocytes Absolute Auto 1.75 K/uL (0.90-2.90); Mean Corpuscular HGB Conc 33 gm/dL (32-36); Mean Corpuscular Hemoglobin 29 pg (26-34); Mean Corpuscular Volume 88 fL (80-100); RDW Coefficient of Variation % 12.2 % (11.5-15.5); Red Blood Count 5.15 m/uL (4.00-5.20); White Blood Count* 8.30 K/uL (4.50-11.00)
[2024-10-04 14:16] LABS: Slide Review Reflex No
--- NOTE | 2024-10-04 14:22 | ED_ITS ---
HPI - General Adult General Chief complaint: Vaginal Bleeding Stated complaint: 6 WK - BLEEDING Time Seen by Provider: 10/04/24 13:41 Source: patient Mode of arrival: ambulatory Limitations: no limitations History of Present Illness HPI narrative: 29-year-old female that approximately 6 weeks gestation presenting today with vaginal bleeding that is been going on for approximately a week. Bleeding is light. She has also been experiencing left sided pelvic cramping. Patient states that she had an HCG checked this we can it was unclear to her whether or not that was rising like it should be. Patient is concerned that she is having another miscarriage. She is crawling on progesterone is asking today whether not should continue to be a progesterone. She is also quite concerned that she has an ectopic given her left-sided discomfort and bleeding. She denies any vomiting or fevers. Related Data Home Medications ?Medication ?Instructions ?Recorded ?Confirmed clobetasol 0.05 % scalp solution topical BID 05/02/24 08/07/24 docosahexaenoic acid 200 mg mg PO 05/02/24 08/07/24 capsule ( DHA) Previous Rx's ?Medication ?Instructions ?Recorded letrozole 2.5 mg tablet 2.5 mg PO QDAY 5 days #5 tab s 08/07/24 progesterone micronized 200 mg 200 mg PO QHS #90 caps 08/07/24 capsule levothyroxine 50 mcg tablet 50 mcg PO QDAY #90 tabs clomiphene citrate 50 mg tablet 50 mg PO QDAY 5 days # 5 tabs 09/19/24 Allergies Allergy/AdvReac Type Severity Reaction Status Date / Time No Known Drug Allergies Allergy Verified 10/04/24 13:28 Review of Systems Status of ROS: Reports: 6 or more systems reviewed and unremarkable except as noted in History and below [facility] Medical History Missed with demise before 20 completed weeks of gestation ?O02.1 - Missed (ICD-10) Anorexia ?R63.0 - Anorexia (ICD-10) Surgical History H/O dilation and curettage (06/27/24) ?Z98.890 - Other specified postprocedural states (ICD-10) History of hip surgery (Unknown) ?Z98.890 - Other specified postprocedural states (ICD-10) Family History Mother High blood pressure Thyroid disease Father Sleep apnea Grandfather Coronary artery disease High blood pressure Alcohol dependence 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 What is your current living situation?: I presently have a place to live Problems where you live: no known problems In the past 12 months, utilities in danger of being shut off: no In past 12 months, lack of transportation kept you from medical appts, meetings, work, or getting things needed for daily living: no In the past 12 mos, have been you worried that your food would run out before you had money to buy more?: never true In the past 12 mos, the food you bought just didn't last and you didn't have money to buy more?: never true Smoking Status: Never smoker Do you use any of these nicotine containing products: None How often do you have a drink containing alcohol: never AUDIT-C Alcohol total score: 0 Non-prescribed substance use: denies use Caffeine: No How often does anyone, including family, friends and others, physically hurt you : never How often does anyone, including family, friends and others, insult or talk down to you: never How often does anyone, including family, friends and others, threaten you with harm: never How often does anyone, including family, friends and others, scream or curse at you: never Are you using contraception or practicing any form of control: No Exam Narrative: Exam Narrative: Well-nourished well-developed patient , slightly anxious rightfully so. Alert and oriented. Answers questions appropriately. Thoughts are goal oriented and rational. No tangential or magical thinking noted. Patient speaks in full sentences without needing to catch her breath. HEENT: Normocephalic atraumatic. Pupils are equally round reactive to light. Extraocular muscles are intact. Conjunctivae are moist without any icterus noted. Moist mucous membranes. Cardiovascular: Heart is regular rate and rhythm S1 and S2 are present without any murmurs. Lungs: Clear to auscultation bilaterally no wheezes rhonchi or rales are appreciated. Patient takes deep breaths without any discomfort. Abdomen: Soft and nontender nondistended with normal bowel sounds. Extremities: Bilateral lower extremities are without edema. Skin: Well perfused . Const: Vital Signs, click to edit/add: Vital Signs - 24 hr 10/04/24 13:30 Temperature 98.1 F Pulse Rate [Pulse Oximeter] 94 Respiratory Rate 16 Blood Pressure [Ri ght Upper Arm] 143/82 H Pulse Oximetry 100 Oxygen Delivery Me thod Room Air Course Course ED Course: CBC was normal. HCG went from 489 on 10/02 to 1158 today. Ultrasound showed no intrauterine and a solid lesion just medial to the right ovary. Discussed this with Dr. Cano who recommended a repeat hCG in 48 hours. Vital Signs Vital signs: Initial Vital Signs Temperature 98.1 F 10/04/24 13:30 Temperature Source Temporal Artery Scan 10/04/24 13:30 Pulse Rate 94 10/04/24 13:30 Pulse Rhythm Regular 10/04/24 13:30 Respiratory Rate 16 10/04/24 13:30 Blood Pressure 143/82 H 10/04/24 13:30 Blood Pressure Mean 102 10/04/24 13:30 Blood Pressure Position Sitting 10/04/24 13:30 Pulse Oximetry 100 10/04/24 13:30 Oxygen Delivery Method Room Air 10/04/24 13:30 Vital Signs Temperature 98.1 F 10/04/24 13:30 Pulse Rate 94 10/04/24 13:30 Respiratory Rate 16 10/04/24 13:30 Blood Pressure 143/82 H 10/04/24 13:30 Pulse Oximetry 100 10/04/24 13:30 Oxygen Delivery Method Room Air 10/04/24 13:30 Temperature 98.1 F 10/04/24 13:30 Pulse Rate 94 10/04/24 13:30 Respiratory Rate 16 10/04/24 13:30 Blood Pressure 143/82 H 10/04/24 13:30 Pulse Oximetry 100 10/04/24 13:30 Oxygen Delivery Method Room Air 10/04/24 13:30 Medical Decision Making MDM Narrative Medical decision making narrative: 29-year-old female in early with vaginal bleeding, question ectopic . To early in to confirm. Repeat hCG in 48 hours. Return to ED with increasing pain or bleeding. Lab Data Lab results reviewed: Yes I reviewed the patient's lab results Labs: Lab Results 10/04/24 Range/Units 14:03 WBC 8.30 (4.50-11.00) K/uL RBC 5.15 (4.00-5.20) m/uL Hgb 14.7 (12.0-16.0) gm/dL Hct 45.3 (33.0-51.0) % MCV 88 (80-100) fL MCH 29 (26-34) pg MCHC 33 (32-36) gm/dL RDW Coeff of Rowan 12.2 (11.5-15.5) % Plt Count 260 (140-440) K/uL Neut % (Auto) 70.9 (42.0-72.0) % Lymph % (Auto) 21.1 (20-44) % [place] % (Auto) 6.3 (0.0-11.0) % Eos % (Auto) 1.2 (0.0-7.0) % Baso % (Auto) 0.5 (0.0-3.0) % Neut # (Auto) 5.89 (1.7-7.0) K/uL Lymph # (Auto) 1.75 (0.90-2.90) K/uL [place] # (Auto) 0.50 (0.00-0.90) K/UL Eos # (Auto) 0.10 (0.00-0.50) K/uL Baso # (Auto) 0.04 (0.00-0.30) K/uL Abs Immat Gran (auto) 0.00 (0.00-0.30) K/uL Imm/Tot Granulo (auto) 0.0 % HCG, Quant 1158.20 mIU/mL Imaging Data US - abdomen: Attestation: I have reviewed the pertinent imaging results. Radiologist's impression: INDICATION: Abdominal pain. Vaginal bleeding. . FINDINGS: An endovaginal pelvic ultrasound shows a 1.0 cm probable fibroid in the left side of the body of the uterus. The uterus is otherwise unremarkable. Heterogeneity of the endometrial stripe measuring 1.0 cm. No rounded fluid collections in the endometrial stripe. 1.4 cm cyst in the right ovary. The right ovary is otherwise unremarkable and measures 2.9 x 2.4 x 1.4 cm. 1.7 x 1.6 x 1.2 cm solid appearing lesion located medial to the right ovary shows only minimal adjacent blood flow. 2.2 x 1.7 x 1.0 cm probable corpus luteum cyst in the left ovary. The left ovary measures 3.3 x 3.1 x 1.6 cm. No free fluid in the pelvis. Impression : 1. No intrauterine identified. 2. 1.7 cm solid-appearing lesion located medial to the right ovary shows minimal adjacent blood flow. This is a nonspecific finding but can not exclude an ectopic . Recommend publication manager consultation. Note: Findings discussed with and acknowledged by Dr. Macias on 04 October 2024 at 1543 hours. Discharge Plan Discharge Clinical Impression: Bleeding in early Patient Disposition: Home, Self-Care Condition: Stable Additional Instructions: [facility] 1st thing Sunday morning and state that you need a follow-up ER appointment and repeat beta-hCG lab draw that day. This is per the recommendation of Dr. Cano. Return to the emergency department if you have increasing bleeding and are soaking a pad every hour or you have abdominal pain. There is a possibility that you have an ectopic . Prescriptions: No Action DHA 200 mg capsule PO clobetasol 0.05 % solution topical BID letrozole 2.5 mg tablet 2.5 mg PO QDAY 5 Days Qty: 5 3RF Rx Instructions: take 1 tab by mouth cycle days 3-7 progesterone micronized 200 mg capsule 200 mg PO QHS Qty: 90 3RF levothyroxine 50 mcg tablet 50 mcg PO QDAY Qty: 90 3RF clomiphene citrate 50 mg tablet 50 mg PO QDAY 5 Days Qty: 5 3RF Rx Instructions: Take 1 tablet daily, cycle days 3-7. Follow Up/Referrals: Provider,Not a Local [Primary Care Provider, Family Practice] Stand Alone Forms: [employer] Info Instructions
[2024-10-04 14:45] LABS: HCG Quantitative* 1158.20 mIU/mL
[2024-10-04 16:00] VITALS: BP 116/78; PULSE 74; RESP 16; O2SAT 98
== END 2024-10-04 16:14 | disposition home or self-care (01) ==
PROVIDERS: Emergency Provider Family Medicine
DX: O20.9 Hemorrhage in early pregnancy, unspecified (principal); Z3A.01 Less than 8 weeks gestation of pregnancy
CPT/HCPCS: 36415; 76817; 84702; 85025; 99283; 99284

== ENCOUNTER 2024-10-06 09:11 | Outpatient (CLI) | payer BC, SELFPAY | END 2024-10-06 09:12 | disposition home or self-care (01) | LOC: NFLDREF 09:13 | PROVIDERS: Visit Provider Obstetrics & Gynecology | DX: O20.9 Hemorrhage in early pregnancy, unspecified (principal) | CPT/HCPCS: 80053; 84702 ==

== ENCOUNTER 2024-10-06 11:13 | Outpatient (CLI) | payer BC, SELFPAY ==
--- NOTE | 2024-10-06 11:30 | CRLHL7_ITS ---
For Patients: As a result of the Century Cures Act, medical imaging exams and procedure reports are released immediately into your electronic medical record. You may view this report before your referring provider. If you have questions, please contact your health care provider. OB ULTRASOUND LESS THAN 14 WEEKS, 10/06/2024 CLINICAL HISTORY: Bleeding. COMPARISON: 10/04/2024. SURGERY: HCG 10/02/24 = 489, 10/04/24 = 1158, 10/06/24 = pending. TECHNIQUE: Real time mayo scale imaging of the fetus was performed. Transvaginal imaging performed. IMAGING: TV. FINDINGS: LMP: 08/25/2024. AMBER by LMP: 06/01/2025. AMBER by US: N/A. GA: N/A. CRL: N/A. FHR: N/A. GEST SAC: N/A. YOLK SAC: N/A. RIGHT OV: 3.3 x 1.4 x 2.3 cm. LEFT OV: 3.6 x 1.8 x 1.9 cm. CL. Uterus: 8.0 x 4.6 x 5.7 cm. Endometrium: 8.7 mm. IMPRESSION: 1. Endometrium is heterogenous with small cysts and measures 8.7 mm, not significantly changed. No intrauterine gestational sac. 2. Solid-appearing structure within the right adnexa measures 1.8 x 1.4 x 2.5 cm, previously measured 1.6 x 1.2 x 1.7 cm, again, suggesting ectopic . A small amount of peripheral vascularity along with a small central area of fluid. 3. Posterior intramural fibroid again noted which measures 8 x7 x 9 mm. Deandre Qiu M.D. Diagnostic Radiologist [email or web address] Transcribed: 12:28 pm DW/Dictated by: Deandre Qiu MD @ 10/06/2024 12:15:00 PM (Electronically Signed)
== END 2024-10-06 11:14 | disposition home or self-care (01) ==
LOC: US 11:13
PROVIDERS: Visit Provider Obstetrics & Gynecology
DX: O20.9 Hemorrhage in early pregnancy, unspecified (principal); O34.81 Maternal care for other abnormalities of pelvic organs, first trimester; N83.209 Unspecified ovarian cyst, unspecified side; O34.11 Maternal care for benign tumor of corpus uteri, first trimester
CPT/HCPCS: 76817; 80053; 84702; J9260

== ENCOUNTER 2024-10-09 13:45 | Outpatient (CLI) | payer BC, SELFPAY | END 2024-10-09 13:46 | disposition home or self-care (01) | LOC: NFLDREF 10-13 17:58 | PROVIDERS: Visit Provider Obstetrics & Gynecology | DX: O20.9 Hemorrhage in early pregnancy, unspecified (principal) | CPT/HCPCS: 84702 ==

== ENCOUNTER 2024-10-12 13:51 | Outpatient (CLI) | payer BC, SELFPAY ==
[2024-10-12 14:17] LABS: Hematocrit 42.0 % (33.0-51.0); Hemoglobin* 13.5 gm/dL (12.0-16.0); Immature Granulocytes Abs Auto 0.00 K/uL (0.00-0.30); Immature Granulocytes Pct Auto 0.0 %; Mean Corpuscular HGB Conc 32 gm/dL (32-36); Mean Corpuscular Hemoglobin 29 pg (26-34); Mean Corpuscular Volume 90 fL (80-100); RDW Coefficient of Variation % 12.3 % (11.5-15.5); Red Blood Count 4.69 m/uL (4.00-5.20); White Blood Count* 7.36 K/uL (4.50-11.00)
[2024-10-12 14:22] LABS: Alanine Aminotransferase* 18 U/L (4-35); Aspartate Amino Transferase* 30 U/L (12-35); Blood Urea Nitrogen* 15 mg/dL (5-24); Creatinine* 0.6 mg/dL (0.5-1.5); Estimated Glomerular Filt Rate 124 ml/min
[2024-10-12 14:26] LABS: Lymphocytes Absolute Auto 1.50 K/uL (0.90-2.90); Slide Review Reflex No
[2024-10-12 14:45] LABS: HCG Quantitative* 263.69 mIU/mL
== END 2024-10-12 13:52 | disposition home or self-care (01) ==
LOC: NFLDREF 13:53 → NFLDLAB 15:29 → LAB 19:24
PROVIDERS: PCP Obstetrics & Gynecology; Visit Provider Obstetrics & Gynecology
DX: O00.90 Unspecified ectopic pregnancy without intrauterine pregnancy (principal)
CPT/HCPCS: 82565; 84450; 84460; 84520; 84702; 85025

== ENCOUNTER 2024-10-21 14:17 | Outpatient (CLI) | payer BC, SELFPAY | END 2024-10-21 14:18 | disposition home or self-care (01) | LOC: NFLDREF 10-23 02:38 | PROVIDERS: PCP Obstetrics & Gynecology; Referring Provider Obstetrics & Gynecology; Visit Provider Obstetrics & Gynecology | DX: O00.90 Unspecified ectopic pregnancy without intrauterine pregnancy (principal) | CPT/HCPCS: 84702 ==

== ENCOUNTER 2024-10-28 13:35 | Outpatient (CLI) | payer BC, SELFPAY | END 2024-10-28 13:36 | disposition home or self-care (01) | LOC: NFLDREF 10-30 15:46 | PROVIDERS: PCP Obstetrics & Gynecology; Referring Provider Obstetrics & Gynecology; Visit Provider Obstetrics & Gynecology | DX: O00.90 Unspecified ectopic pregnancy without intrauterine pregnancy (principal) | CPT/HCPCS: 84702 ==